=== PATIENT | female | born 2000 | race Two or more races ===

== ENCOUNTER 2025-03-24 11:13 | Emergency (ER) | payer OTHER ==
[~2025-03-24] VITALS: Ht 154.9 cm; Wt 54.0 kg
--- NOTE | 2025-03-24 11:45 | ED.PDOC ---
LUNCH COUNTER MANAGER HPI Comments THIS IS A 24-YEAR-OLD FEMALE, CURRENTLY 13 WEEKS , WHO PRESENTS TO THE ED WITH A C/C OF NAUSEA AND VOMITING FOR 1 DAY. PATIENT REPORTS SHE CAN NOT HOLD DOWN ANY LIQUIDS OR FOOD . PATIENT HAS NO FURTHER COMPLAINTS AT THIS TIME. PATIENT DENIES DYSURIA, HEMATURIA, FEVER, CHILLS, PELVIC PAIN, VAGINAL BLEEDING OR ABDOMINAL PAIN. PATIENT IS ALERT, ORIENTED X 4, AND HAS STEADY GAIT. NO OTHER SYMPTOMS REPORTED AT THIS TIME OF CARE. 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 History Family History Family History: Reviewed,noncontributory to illness, No family hx of Cancer, No family hx of DM, No family hx of Heart shanae, No family hx of HTN, No family hx ofKidney shanae, No family hx of Liver shanae, No family hx of Lung shanae, No family hx of Stroke Social History Smoker: Non-Smoker Alcohol: Denies ETOH Use Drugs: Denies Drug Use Lives In: Home Constitutional: denies: chills, diaphoresis, fatigue, fever, malaise, sweats, weakness, others EENTM: denies: blurred vision, double vision, ear bleeding, ear discharge, ear drainage, ear pain, ear ringing, eye pain, eye redness, hearing loss, mouth pain, mouth swelling, nasal discharge, nose bleeding, nose congestion, nose pain, photophobia, tearing, throat pain, throat swelling, voice changes, others Respiratory: denies: cough, hemoptysis, orthopnea, SOB at rest, shortness of breath, SOB with excertion, stridor, wheezing, others Cardiovascular: denies: chest pain, dizzy spells, diaphoresis, Dyspnea on exertion, edema, irregular heart beat, left arm pain, lightheadedness, palpitations, PND, syncope, others Gastrointestinal: reports: nausea, vomiting; denies: abdomen distended, abdominal pain, blood streaked bowels, constipated, diarrhea, dysphagia, difficulty swallowing, hematemesis, melena, poor appetite, poor fluid intake, rectal bleeding, rectal pain, others Genitourinary: reports: ; denies: abnormal vagina bleeding, burning, dyspareunia, dysuria, flank pain, frequency, hematuria, incontinence, pain, vagina discharge, urgency, others Neurological: denies: dizziness, fainting, headache, left sided numbness, left sided weakness, numbness, paresthesia, pre-existing deficit, right sided numbness, right sided weakness, seizure, speech problems, tingling, tremors, weakness, others Musculoskeletal: denies: back pain, gout, joint pain, joint swelling, muscle pain, muscle stiffness, neck pain, others Integumetry: denies: bruises, change in color, change in hair/nails, dryness, laceration, lesions, lumps, rash, wounds, others Allergic/Immunocompromised: denies: Difficulty Healing, Frequent Infections, Hives, Itching, others Hematologic/Lymphatic: denies: anemia, blood clots, easy bleeding, easy bruising, swollen glands, others Endocrine: denies: excessive hunger, excessive sweating, excessive thirst, excessive urination, flushing, intolerance to cold, intolerance to heat, unexplained weight gain, unexplained weight loss, others Psychiatric: denies: anxiety, bipolar disorder, depression, hopeless, panic disorder, schizophrenia, sleepless, suicidal, others All Other Systems: Reviewed and Negative Physical Exam General Appearance: No Apparent Distress, Normal HEENT: Normal ENT Inspection, PERRL/EOMI, Pharynx Normal, TMs Normal Neck: Full Range of Motion, Non-Tender, Normal, Normal Inspection Respiratory: Chest Non-Tender, Lungs Clear, No Accessory Muscle Use, No Respiratory Distress, Normal Breath Sounds Cardiovascular: No Edema, No JVD, No Murmur, No Gallop, Normal Peripheral Pulses, Regular Rate/Rhythm Breast Exam: Deferred Gastrointestinal: No Organomegaly, Non Tender, No Pulsatile Mass, Normal Bowel Sounds, Soft Genitalia: Deferred Pelvic: Deferred Rectal: Deferred Extremities: No calf tenderness, Normal capillary refill, Normal inspection, Normal range of motion, Non-tender, No pedal edema Musculoskeletal : Apperance: Normal Neurologic: Alert, aerodynamics professor II-XII nml as Tested, No Motor Deficits, Normal Affect, Normal Mood, No Sensory Deficits Cerebellar Function: Normal Reflexes: Normal Skin: Dry, Normal Color, Warm Peripheral Pulses: 2+ carotid (R), 2+ carotid (L) Lymphatic: No Adenopathy Was a procedure done? Was a procedure done?: No Differential Diagnosis (DIRECTOR OF HEAD START) Vaginal Bleeding: UTI, Other (VOMITING OF ) Vaginal Discharge: X-Ray, Labs, Meds, VS Vital Signs Date Time Temp Pulse Resp B/P (MAP) Pulse Ox O2 Delivery O2 Flow Rate FiO2 03/24/25 12:21 85 16 96 Room Air 03/24/25 12:21 98.0 85 16 96/59 (71) 96 98.0 03/24/25 11:14 97.8 94 18 118/73 96 97.8 Lab Test 03/24/25 11:44 03/24/25 11:13 Range/Units White Blood Count 6.8 4.4-10.8 10^3/uL Red Blood Count 4.28 4.0-5.20 10^6/uL Hemoglobin 13.9 12.2-16.2 g/dL Hematocrit 39.6 36.0-46.0 % Mean Corpuscular Volume 92.6 80.0-100.0 fL Mean Corpuscular Hemoglobin 32.5 H 28.0-32.0 pg Mean Corpuscular Hemoglobin Concent 35.1 32.0-36.0 g/dL Red Cell Distribution Width 13.1 11.8-14.3 % Platelet Count 227 140-450 10^3/uL Mean Platelet Volume 8.5 6.9-10.8 fL Neutrophils (%) (Auto) 71.3 37.0-80.0 % Lymphocytes (%) (Auto) 10.2 10.0-50.0 % Monocytes (%) (Auto) 17.0 H 0.0-12.0 % Eosinophils (%) (Auto) 1.0 0.0-7.0 % Basophils (%) (Auto) 0.5 0.0-2.0 % Neutrophils # (Auto) 4.8 1.6-8.6 10 ^3/uL Lymphocytes # (Auto) 0.7 0.4-5.4 10 ^3/uL Monocytes # (Auto) 1.2 0-1.3 10 ^3/uL Eosinophils # (Auto) 0.1 0-0.8 10 ^3/uL Basophils # (Auto) 0 0-0.2 10 ^3/uL Nucleated Red Blood Cells 0.0 % Sodium Level 134 L 136-145 mmol/L Potassium Level 4.0 3.5-5.1 mmol/L Chloride Level 101 98-107 mmol/L Carbon Dioxide Level 19 L 20-31 mmol/L Anion Gap 14 5-15 Blood Urea Nitrogen 7 L 9-23 mg/dL Creatinine 0.68 0.550-1.02 mg/dL Glomerular Filtration Rate Calc 125 >90 mL/min BUN/Creatinine Ratio 10.3 10.0-20.0 Serum Glucose 76 74-106 mg/dL Calcium Level 9.7 8.7-10.4 mg/dL Beta HCG, Quantitative 51349.8 H 1.5-4.2 mIU/mL Urine Color Yellow Yellow Urine Clarity Clear Clear Urine pH 5.5 5.0-9.0 Urine Specific Millen 1.030 1.001-1.035 Urine Protein 1+ H Negative Urine Ketones 4+ H Negative Urine Blood Negative Negative /uL Urine Nitrite Negative Negative Urine Bilirubin Negative Negative Urine Urobilinogen Normal Negative mg/dL Urine Leukocyte Esterase Trace Negative /uL Urine RBC 2 0 - 4 /hpf Urine Microscopic WBC 5 0-5 /HPF Urine Squamous Epithelial Cells Few <5 /hpf Urine Bacteria None seen None Seen /hpf Urine Mucus Few None Seen Urine Glucose Normal Normal mg/dL Current Medications Medications (Trade) Dose Ordered Sig/Nori Route Start Time Stop Time Status Last Admin Sodium Chloride 1,000 ml @ 1,000 mls/hr Q1H ONCE IV 03/24/25 11:45 03/24/25 12:44 DC 03/24/25 12:14 Ondansetron HCl (Zofran) 4 mg ONCE ONCE IV 03/24/25 11:45 03/24/25 11:46 DC 03/24/25 12:55 Sodium Chloride 500 ml @ 500 mls/hr Q1H ONCE IV 03/24/25 13:15 03/24/25 14:14 03/24/25 13:18 X-Ray, Labs, Meds, VS Comment EXTERNAL MEDICAL RECORDS REVIEWED: [NONE] INDEPENDENT HISTORIANS: [NONE] SOCIAL DETERMINANTS OF HEALTH: [NONE] LABS ORDERED: CBC, UA, BMP REVIEWED AND INTERPRETED RESULTS: MILD DEHYDRATION IMAGING ORDERED: NONE TREATMENTS ORDERED: HEPLOCK IV, IV FLUIDS 1.5LS AND ZOFRAN 4MG PROCEDURES PERFORMED: NONE CRITICAL CARE TIME: NONE I HAVE DISCUSSED THE PATIENT WITH THE ATTENDING PHYSICIAN DR. HARTLEY AND SHE AGREES WITH THE PATIENT'S PLAN OF CARE AND DISPOSITION. BASED ON HISTORY OF PRESENT ILLNESS, AND PHYSICAL EXAM, PATIENT WILL BE DISCHARGED HOME. DISCUSSED PLAN FOR DISCHARGE HOME WITH RX [ZOFRAN ]. MEDICATION WARNINGS GIVEN. SHARED DECISION MAKING: DISCUSSED WITH PATIENT THAT THEIR WORKUP WAS NORMAL. PATIENT INSTRUCTED TO FOLLOW UP WITH PRIMARY CARE PROVIDER IN 1-2 DAYS FOR RE- EVALUATION OF SYMPTOMS. PATIENT VERBALIZES UNDERSTANDING TO RETURN TO ED FOR NEW OR WORSENING SYMPTOMS OR IF FOLLOW UP WITH PCP CANNOT BE OBTAINED. PATIENT FEELS COMFORTABLE GOING HOME AT THIS TIME. ALL QUESTIONS ADDRESSED AT TIME OF DISCHARGE. Time of 1ST Reevaluation: 13:39 Reevaluation 1ST: Improved Patient Education/Counseling: Diagnosis, Treatment, Need For Follow Up Family Education/Counseling: Diagnosis, Treatment, No Family Present Medical Screening: No EMC Exist At This Time Departure 1 Departure Time of Disposition: 13:41 Impression: Primary Impression: Vomiting of Additional Impression: Mild dehydration Disposition: 01 HOME / SELF CARE / HOMELESS Condition: Stable Additional Instructions: F/U LUNCH COUNTER MANAGER IN 2 DAYS RECHECK. IF CONDITION BECOME WORSE, RETURN TO ED [facility]ERTO. e-Prescriptions Ondansetron Odt 4MG Tab (ZOFRAN PO) 4 Mg Tb 4 MG PO BID, #30 TAB ODT TAB-DISSOLVE IN MOUTH, THEN SWALLOW Prov: ARJUN PURCELL 03/24/25 Discharged With: Self Critical Care Note Critical Care Time?: No Stability Stability form required: No Heart Score Heart Score: Heart Score Response (Comments) Value History N/A 0 EKG N/A 0 Age N/A 0 Risk Factors N/A 0 Troponin N/A 0 Total 0 I personally scribed for ARJUN PURCELL ([email or web address]) on 03/24/25 at 11:45. Electronically submitted by Isabelle Love ([email or web address]). I personally scribed for ARJUN PURCELL ([email or web address]) on 03/24/25 at 11:47. Electronically submitted by Isabelle Love ([email or web address]). ARJUN PURCELL Mar 24, 2025 11:45
[2025-03-24 11:55] LABS: Urine Protein, UAD 1+ (Negative)
[2025-03-24] MEDS: SODIUM CHLORIDE 0.9% 1,000 ML IV ONE (12:14)
[2025-03-24 12:21] VITALS: BP 96/59; PULSE 85; RESP 16; TEMP 98; O2SAT 96
[2025-03-24 12:30] LABS: Chloride 101 mmol/L (98-107); Potassium 4.0 mmol/L (3.5-5.1)
[2025-03-24 12:31] LABS: Anion Gap 14 (5-15)
[2025-03-24 12:32] LABS: Calcium 9.7 mg/dL (8.7-10.4)
[2025-03-24 12:33] LABS: Hematocrit 39.6 % (36.0-46.0); Hemoglobin 13.9 g/dL (12.2-16.2); Mean Corpuscular Hemoglobin 32.5 pg (28.0-32.0); Mean Corpuscular Volume 92.6 fL (80.0-100.0); Nucleated Red Blood Cells % 0.0 %
[2025-03-24 12:36] LABS: Glucose 76 mg/dL (74-106)
[2025-03-24 12:37] LABS: BUN/Creatinine Ratio 10.3 (10.0-20.0); Blood Urea Nitrogen 7 mg/dL (9-23); Carbon Dioxide 19 mmol/L (20-31); Sodium 134 mmol/L (136-145)
[2025-03-24] MEDS: ONDANSETRON HCL 4 MG/2 ML VIAL IV ONE (12:55)
[2025-03-24] MEDS: SODIUM CHLORIDE 0.9% 500 ML IV ONE (13:18)
[2025-03-24] MEDS ORDERED: ZOFR4T PO (13:42)
== END 2025-03-24 13:55 | disposition home or self-care (01) ==
LOC: ER 11:13
DX: O20.0 Threatened abortion (principal); O21.8 Other vomiting complicating pregnancy; O99.281 Endocrine, nutritional and metabolic diseases complicating pregnancy, first trimester; E86.0 Dehydration; Z3A.13 13 weeks gestation of pregnancy
CPT/HCPCS: 36415; 80048; 81001; 84702; 85025; 96361; 96374; 99283; J2405; J7030; J7040

== ENCOUNTER 2025-07-19 13:31 | Emergency (ER) | payer OTHER ==
[~2025-07-19] VITALS: Ht 154.9 cm; Wt 63.0 kg
[~2025-07-19 13:31] MED LIST: ZOFR4T PO
--- NOTE | 2025-07-19 14:28 | ED.PDOC ---
Malu. trauma (HPI) HPI Comments 24 y/o F, presents to the ED for CC of s/p fall injury. Patient states, that she suffered a slip and fall on stairs, landing on her back. Patient reports, that she is currently [id number] . Following trauma, patient c/o pain to her lower back. Patient denies vaginal bleeding, abdominal cramping, head injury, or loss of consciousness. Chief Complaint: Fall Injury Time Seen by MD: 14:20 Reviewed notes: Nurses Notes, Medications, Allergies Allergies: Coded Allergies: NO KNOWN ALLERGIES (Unverified , 03/24/25) Home Meds Active Scripts Ondansetron Odt 4MG Tab (ZOFRAN PO) 4 Mg Tb, 4 MG PO BID, #30 TAB ODT TAB-DISSOLVE IN MOUTH, THEN SWALLOW Prov:ARJUN PURCELL 03/24/25 Information Source: Patient Mode of Arrival: Ambulatory Severity: Moderate Timing: Minutes Duration: Since onset Prehospital treatment: None Location: Back Location of laceration: None Mechanism: Fall Associated signs and symtoms: None Past Medical History PAST MEDICAL HISTORY: Denies Surgical History: Denies all surgeries 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 Family History Family History: Reviewed,noncontributory to illness, No family hx of Cancer, No family hx of DM, No family hx of Heart shanae, No family hx of HTN, No family hx ofKidney shanae, No family hx of Liver shanae, No family hx of Lung shanae, No family hx of Stroke Social History Smoker: Non-Smoker Alcohol: Denies ETOH Use Drugs: Denies Drug Use Lives In: Home Constitutional: denies: chills, diaphoresis, fatigue, fever, malaise, sweats, weakness, others EENTM: denies: blurred vision, double vision, ear bleeding, ear discharge, ear drainage, ear pain, ear ringing, eye pain, eye redness, hearing loss, mouth pain, mouth swelling, nasal discharge, nose bleeding, nose congestion, nose pain, photophobia, tearing, throat pain, throat swelling, voice changes, others Respiratory: denies: cough, hemoptysis, orthopnea, SOB at rest, shortness of breath, SOB with excertion, stridor, wheezing, others Cardiovascular: denies: chest pain, dizzy spells, diaphoresis, Dyspnea on exertion, edema, irregular heart beat, left arm pain, lightheadedness, palpitations, PND, syncope, others Gastrointestinal: denies: abdomen distended, abdominal pain, blood streaked bowels, constipated, diarrhea, dysphagia, difficulty swallowing, hematemesis, melena, nausea, poor appetite, poor fluid intake, rectal bleeding, rectal pain, vomiting, others Genitourinary: denies: abnormal vagina bleeding, burning, dyspareunia, dysuria, flank pain, frequency, hematuria, incontinence, pain, , vagina discharge, urgency, others Neurological: denies: dizziness, fainting, headache, left sided numbness, left sided weakness, numbness, paresthesia, pre-existing deficit, right sided numbness, right sided weakness, seizure, speech problems, tingling, tremors, weakness, others Musculoskeletal: reports: back pain; denies: gout, joint pain, joint swelling, muscle pain, muscle stiffness, neck pain, others Integumetry: denies: bruises, change in color, change in hair/nails, dryness, laceration, lesions, lumps, rash, wounds, others Allergic/Immunocompromised: denies: Difficulty Healing, Frequent Infections, Hives, Itching, others Hematologic/Lymphatic: denies: anemia, blood clots, easy bleeding, easy bruising, swollen glands, others Endocrine: denies: excessive hunger, excessive sweating, excessive thirst, excessive urination, flushing, intolerance to cold, intolerance to heat, unexplained weight gain, unexplained weight loss, others Psychiatric: denies: anxiety, bipolar disorder, depression, hopeless, panic disorder, schizophrenia, sleepless, suicidal, others All Other Systems: Reviewed and Negative Physical Exam General Appearance: No Apparent Distress, Other () HEENT: Normal ENT Inspection, Pharynx Normal Neck: Full Range of Motion, Non-Tender, Normal, Normal Inspection Respiratory: Chest Non-Tender, Lungs Clear, No Accessory Muscle Use, No Respiratory Distress, Normal Breath Sounds Cardiovascular: No Edema, No Murmur, No Gallop, Normal Peripheral Pulses, Regular Rate/Rhythm Breast Exam: Deferred Gastrointestinal: No Organomegaly, Non Tender, No Pulsatile Mass, Normal Bowel Sounds, Soft Genitalia: Deferred Pelvic: Deferred Rectal: Deferred Extremities: No calf tenderness, Normal capillary refill, Normal inspection, Normal range of motion, Non-tender, No pedal edema Musculoskeletal : Apperance: Normal Neurologic: Alert, reeling machine operator II-XII nml as Tested, No Motor Deficits, Normal Affect, Normal Mood, No Sensory Deficits Cerebellar Function: Normal Reflexes: Normal Skin: Dry, Normal Color, Warm Lymphatic: No Adenopathy Was a procedure done? Was a procedure done?: No Differential Diagnosis Multiple Trauma: Other (musculoskeletal pain) X-Ray, Labs, Meds, VS Vital Signs Date Time Temp Pulse Resp B/P (MAP) Pulse Ox O2 Delivery O2 Flow Rate FiO2 07/19/25 16:14 98.5 07/19/25 13:38 98.0 79 18 101/68 96 98.0 Current Medications Medications (Trade) Dose Ordered Sig/Nori Route Start Time Stop Time Status Last Admin Acetaminophen (Tylenol Tablet) 650 mg ONCE ONCE PO 07/19/25 14:00 07/19/25 14:01 DC 07/19/25 16:14 [place] [id number] Ph: [phone] DIAGNOSTIC IMAGING Diagnostic Imaging Report : [id number] Signed PATIENT: SHAILA OROZCO NACCT: [id number] UNIT: [id number] : 2000 LOC: ER ROOM / BED: / AGE / SEX: 24 / F ADM STATUS: REG ER SERVICE 1422 ORDERING PHYSICIAN: KENA NORMAN MD PROCEDURE(s): OBUS - OB ULTRASOUND COMP GTR 14 WKS REASON: fell down stairs ORDER NUMBER(s): [id number], ACCESSION NUMBER(s): [id number] EXAM: US OB ULTRASOUND COMP GTR 14 WKS DATE OF SERVICE: 07/19/2025 03:01 PM ORDERING PHYSICIAN: KENA NORMAN REASON FOR EXAM: fell down stairs TECHNIQUE: Sonographic imaging of the gravid uterus was performed. COMPARISON: None FINDINGS: There is a single live intrauterine in cephalic presentation with a heart rate of 137 beats per minute. The placenta is anterior with no evidence for abruption or previa. The amniotic fluid index is 13 cm. The BPD is 7.6 cm, the head circumference is 28.1 cm, the abdominal circumference is 25.9 cm, and the femur length is 5.7 cm. The composite gestational age 30 weeks 3 days. The estimated weight is 1533 g. The 4-chamber heart, stomach, kidneys, and bladder are grossly within normal limits. The maternal cervix is closed, measuring 3.9 cm. IMPRESSION: Single live intrauterine dated at 30 weeks 3 days by current ultrasound biometry. ATED BY: JACOBO HERNANDEZ MD DICTATED DATE/TIME: 07/19/251541 SIGNED BY: JACOBO HERNANDEZ MD SIGNED DATE/TIME: 07/19/251541 CC: Time of 1ST Reevaluation: 14:50 Reevaluation 1ST: Unchanged Patient Education/Counseling: Diagnosis, Treatment Family Education/Counseling: No Family Present Departure 1 Departure Time of Disposition: 17:04 (Patient's ultrasound was benign. We will discharge patient home with outpatient follow up) Impression: Primary Impression: Fall Additional Impression: Disposition: 01 HOME / SELF CARE / HOMELESS Condition: Stable Additional Instructions: Your ultrasound was benign and she has a normal . Discharged With: Self Critical Care Note Critical Care Time?: No Stability Stability form required: No Heart Score Heart Score: Heart Score Response (Comments) Value History N/A 0 EKG N/A 0 Age N/A 0 Risk Factors N/A 0 Troponin N/A 0 Total 0 I personally scribed for KENA NORMAN MD ([email or web address]) on 07/19/25 at 14:28. Electronically submitted by Samantha Matute ([email or web address]). I personally scribed for KENA NORMAN MD ([email or web address]) on 07/19/25 at 16:32. Electronically submitted by Samantha Matute ([email or web address]). KENA NORMAN MD Jul 19, 2025 14:28
--- NOTE | 2025-07-19 15:44 | DVH ---
EXAM: US OB ULTRASOUND COMP GTR 14 WKS DATE OF SERVICE: 07/19/2025 03:01 PM ORDERING PHYSICIAN: KENA NORMAN REASON FOR EXAM: fell down stairs TECHNIQUE: Sonographic imaging of the gravid uterus was performed. COMPARISON: None FINDINGS: There is a single live intrauterine in cephalic presentation with a heart rate of 137 beats per minute. The placenta is anterior with no evidence for abruption or previa. The amniotic fluid index is 13 cm. The BPD is 7.6 cm, the head circumference is 28.1 cm, the abdominal circumference is 25.9 cm, and the femur length is 5.7 cm. The composite gestational age 30 weeks 3 days. The estimated weight is 1533 g. The 4-chamber heart, stomach, kidneys, and bladder are grossly within normal limits. The maternal cervix is closed, measuring 3.9 cm. IMPRESSION: Single live intrauterine dated at 30 weeks 3 days by current ultrasound biometry.
[2025-07-19] MEDS: ACETAMINOPHEN 325 MG TAB PO ONE (16:14)
[2025-07-19 18:12] VITALS: BP 127/70; PULSE 63; RESP 17; TEMP 98.1
[2025-07-19 18:13] VITALS: O2SAT 99
== END 2025-07-19 18:12 | disposition home or self-care (01) ==
LOC: ER 13:31
DX: O9A.213 Injury, poisoning and certain other consequences of external causes complicating pregnancy, third trimester (principal); S39.91XA Unspecified injury of abdomen, initial encounter; Z3A.30 30 weeks gestation of pregnancy; W18.39XA Other fall on same level, initial encounter; W10.9XXA Fall (on) (from) unspecified stairs and steps, initial encounter; Y92.89 Other specified places as the place of occurrence of the external cause; Y99.8 Other external cause status
CPT/HCPCS: 76805